=== PATIENT | female | born 1935 | race Caucasian/White ===

== ENCOUNTER 2018-05-24 08:07 | Emergency (ER) | payer OTHER, MEDICAID ==
[2018-05-24] MEDS: ALPRAZOLAM 0.25 MG TAB PO (09:50)
== END 2018-05-24 10:32 | disposition home or self-care (01) ==
LOC: E/R 08:07
DX: F41.9 Anxiety disorder, unspecified (principal); I10 Essential (primary) hypertension; E11.9 Type 2 diabetes mellitus without complications; Z79.4 Long term (current) use of insulin; Z79.82 Long term (current) use of aspirin
CPT/HCPCS: 99283

== ENCOUNTER 2018-09-06 12:22 | Emergency (ER) | payer OTHER, MEDICAID | END 2018-09-06 15:21 | disposition home or self-care (01) | LOC: FTE 12:22 | DX: R59.9 Enlarged lymph nodes, unspecified (principal); I10 Essential (primary) hypertension; Z79.82 Long term (current) use of aspirin; Z79.84 Long term (current) use of oral hypoglycemic drugs | CPT/HCPCS: 71045; 76536; 99284-25 ==

== ENCOUNTER 2018-10-19 11:26 | Emergency (ER) | payer OTHER, MEDICAID ==
[2018-10-19] MEDS: HYDROCODONE/APAP (5/325) TAB PO (12:09)
== END 2018-10-19 12:26 | disposition home or self-care (01) ==
LOC: E/R 11:26
DX: R22.1 Localized swelling, mass and lump, neck (principal); I10 Essential (primary) hypertension; E11.9 Type 2 diabetes mellitus without complications; Z79.4 Long term (current) use of insulin; Z79.82 Long term (current) use of aspirin
CPT/HCPCS: 99283